=== PATIENT | female | born 1980 | race Caucasian/White ===

== ENCOUNTER 2017-03-04 17:45 | Emergency (ER) | payer MEDICAID ==
[~2017-03-04] VITALS: Ht 154.9 cm; Wt 131.0 kg
[~2017-03-04 17:45] MED LIST: DEPO150I; LAMO100 PO; SERO100T PO; SERO300T2 PO; TRAM50 PO; [UNRECOGNIZED DRUG - OTHER] PO
[2017-03-04 17:49] VITALS: BP 116/92; PULSE 97; RESP 16; TEMP 99.2; O2SAT 100
[2017-03-04] MEDS ORDERED: OXYC15TA PO (18:02)
[2017-03-04] MEDS ORDERED: LOSA50TA PO (18:02)
[2017-03-04] MEDS ORDERED: SIMV40TA PO (18:02)
[2017-03-04] MEDS ORDERED: LAMO25 PO (18:02)
[2017-03-04] MEDS ORDERED: DEPO150I IM (18:02)
[2017-03-04] MEDS ORDERED: METF1000 PO (18:02)
--- NOTE | 2017-03-04 18:27 | PD ---
HPI Chief Complaint: Musculoskeletal Complaint Time Seen by Provider: 18:28 Travel History International Travel<30 days: No Contact w/Intl Traveler<30days: No Traveled to known affect area: No History of Present Illness HPI 37-year-old female here with left knee pain times one day. Patient denies specific injury or trauma. She reports she did extensive walking and climbing of stairs several days ago while in [place]. She denies paresthesia or weakness of the extremity. She denies leg swelling. Symptom severity is mild. PFSH Past Medical History Asthma: Yes Bipolar Disorder: Yes Anxiety: Yes High Cholesterol: Yes Diabetes: Yes Patient Takes Glucophage: No Diminished Hearing: No Hypertension: Yes Musculoskeletal: Yes (L4-L5 SLIPPED DISC 2007) Psychiatric: Yes Respiratory: Yes ([place]) Immunizations Current: No Sleep Apnea: Yes ?: Not LMP: DEPO : 2 Para: 2 Miscarriage: 0 : 0 Past Surgical History Section: Yes (2000 & 2002) Cholecystectomy: Yes Gynecologic Surgery: Yes ( x 2) Other Surgery: Yes (right hand surgery, right breast biopsy and I and D) Social History Alcohol Use: No Tobacco Use: Yes (1 PPD) Substance Use: No Allergies-Medications (Allergen,Severity, Reaction): Coded Allergies: acetaminophen (Unverified Allergy, Severe, N/V, 03/04/17) penicillin G (Unverified Allergy, Severe, RASH, 03/04/17) propoxyphene (Unverified Allergy, Severe, N/V, 03/04/17) aspirin (Unverified Allergy, Unknown, 03/04/17) ALLERGY / ADVREAC NOT SPECIFIED codeine (Unverified Allergy, Unknown, Nausea/Vomiting, 03/04/17) Reported Meds & Prescriptions Reported Meds & Active Scripts Active Reported Depo-Provera Inj (Medroxyprogesterone Inj) 150 Mg/Ml Inj 150 Mg IM Q90D Lamictal (Lamotrigine) 25 Mg Tab 25 Mg PO DAILY Losartan (Losartan Potassium) 50 Mg Tab 50 Mg PO DAILY Oxycodone (Oxycodone HCl) 15 Mg Tab 15 Mg PO Q4H PRN Metformin (Metformin HCl) 1,000 Mg Tab 1,000 Mg PO BIDPC Simvastatin 40 Mg Tab 40 Mg PO HS Review of Systems Except as stated in HPI: all other systems reviewed are Neg Physical Exam Narrative GENERAL: Alert well-appearing female in no distress. SKIN: Warm and dry. HEAD: Normocephalic. EYES: No scleral icterus. No injection or drainage. NECK: Supple, trachea midline. No JVD or lymphadenopathy. CARDIOVASCULAR: Regular rate and rhythm without murmurs, gallops, or rubs. RESPIRATORY: Breath sounds equal bilaterally. No accessory muscle use. GASTROINTESTINAL: Abdomen soft, non-tender, nondistended. MUSCULOSKELETAL: No cyanosis, or edema. Left knee: Gian to the soft tissue of the medial and lateral aspect of the knee. The joint is stable. No deformity. No joint effusion. No posterior knee pain or calf tenderness. Distal pulses. Brisk cap refill. Data Data Last Documented VS Vital Signs Date Time Temp Pulse Resp B/P (MAP) Pulse Ox O2 Delivery O2 Flow Rate FiO2 03/04/17 17:49 99.2 97 16 116/92 (100) 100 Orders Orders Ed Discharge Order (03/04/17 18:29) MDM Medical Decision Making Medical Screen Exam Complete: Yes Emergency Medical Condition: Yes Differential Diagnosis Lateral collateral ligament strain, medial collateral ligament strain, ACL injury Narrative Course 37-year-old female here with left knee pain. The joint is stable. She has no bony tenderness. I feel that this is a mild strain Diagnosis Primary Impression: Knee sprain Qualified Codes: S83.92XA - Sprain of unspecified site of left knee, initial encounter Referrals: [facility] Additional Instructions: Take [id number] Motrin 600 800 mg every 6-8 hours as needed for pain. Continue to wear the Kapil wrap for support. Ice and elevate the extremity. Disposition: 01 DISCHARGE HOME Condition: Stable Keri Paris Mar 04, 2017 18:27
== END 2017-03-04 18:36 | disposition home or self-care (01) ==
LOC: PHEFT 17:45
DX: S83.92XA Sprain of unspecified site of left knee, initial encounter (principal); E11.9 Type 2 diabetes mellitus without complications; E78.00 Pure hypercholesterolemia, unspecified; I10 Essential (primary) hypertension; F17.200 Nicotine dependence, unspecified, uncomplicated; X50.9XXA Other and unspecified overexertion or strenuous movements or postures, initial encounter; Y93.A3 Activity, aerobic and step exercise; Z79.84 Long term (current) use of oral hypoglycemic drugs
CPT/HCPCS: 99282